=== PATIENT | female | born 1970 | race Caucasian/White ===

== ENCOUNTER 2017-01-21 07:32 | Day surgery (SDC) | payer OTHER ==
[~2017-01-21] VITALS: Ht 157.5 cm; Wt 65.7 kg
[2017-01-21 08:05] VITALS: Ht 157.5 cm; Wt 65.7 kg
[2017-01-21] MEDS ORDERED: LOVA20TA PO (08:12)
[2017-01-21] MEDS ORDERED: GLIP-173 PO (08:12)
[2017-01-21] MEDS ORDERED: METF500T4 PO (08:12)
[2017-01-21] MEDS ORDERED: LIDOCAINE 4% SOLUTION 50 ML BTL ONE (08:33)
[2017-01-21 08:43] VITALS: BP 125/71; PULSE 80; RESP 19
[2017-01-21] MEDS ORDERED: MIDAZOLAM 1 MG/ML 2 ML INJ ONE ×2 (09:17)
[2017-01-21] MEDS ORDERED: FENTAnyl 50 MCG/ML VIAL ONE (09:18)
--- NOTE | 2017-01-25 09:18 | GILP ---
DATE OF PROCEDURE: 01/21/2017 PREOPERATIVE DIAGNOSIS: Patient presenting with history of occasional bloody stools. He has irregular bowel movements, weight loss of 50 pounds, abdominal pain. Rule out peptic ulcer disease. POSTOPERATIVE DIAGNOSES: 1. Diffuse gastritis. 2. Antral erosions. PROCEDURE PERFORMED: Esophagogastroduodenoscopy. SURGEON: Arik Olmedo MD DESCRIPTION OF PROCEDURE: After the informed written consent is obtained, the patient was asked to lay on the left lateral side; 2 mg Versed and 50 mcg of fentanyl were given as intravenous anesthesia. When the patient became somnolent, the Olympus video upper endoscope was introduced into the oropharynx and then into the esophagus. The esophagus appeared normal with no mucosal abnormality. The endoscope, at this time, was advanced into the stomach. The stomach showed evidence of a multiple erosions, diffuse patchy gastritis, antral erosions. Mucosa of the duodenum, up to the end of the 3rd portion, appeared normal. At this time, biopsy was done from the antrum, the lesser curvature, and the fundus to rule out H. pylori infection. The scope at this time was withdrawn and the procedure was terminated. PLAN: Recommend omeprazole 40 mg a day for 2 months. Dictated By: Arik Olmedo MD /[email or web address]/[email or web address] /Document#: [id number] ; Flavia aClhoun
== END 2017-01-21 17:49 | disposition home or self-care (01) ==
LOC: GIL 07:32
PROVIDERS: ATTEND Internal Medicine Gastroenterology
DX: K29.50 Unspecified chronic gastritis without bleeding (principal)
CPT/HCPCS: 43239; 82962; 88305; 88312; J2250; J3010; Z7610

== ENCOUNTER 2017-12-06 06:14 | Day surgery (SDC) | END 2017-12-06 12:10 | disposition home or self-care (01) ==